=== PATIENT | male | born 1995 | race Caucasian/White ===

== ENCOUNTER 2017-07-13 22:58 | Emergency (ER) | payer BC ==
[~2017-07-13] VITALS: Ht 182.9 cm; Wt 78.7 kg
[2017-07-13 23:07] VITALS: TEMP 36.7; Ht 182.9 cm; Wt 78.7 kg
--- NOTE | 2017-07-13 23:52 | EMERGENCY ROOM VISIT NOTE ---
ED Visit Note First contact with patient: 23:38 CHIEF COMPLAINT: Left Knee laceration HISTORY OF PRESENT ILLNESS: This 21-year-old male presents the ER with chief complaint of a laceration to his left knee. The patient states at 2 AM this morning he fell striking his knee on the pavement. The patient states that he did not tear his hands that he had on when he fell. Therefore he felt the wound should be clean. The patient was intoxicated at the time. The patient states that it bled a lot and he cleaned it out with water. The patient states that he told his parents later today and they told him to come to the emergency room to get evaluated to see if it needed sutures. REVIEW OF SYSTEMS: 6 system review was performed and was negative unless stated otherwise in history of present illness. PMH: The patient is healthy; there is no significant medical or surgical history. SOCIAL HISTORY: Patient is a [employer]. The patient denies tobacco use but admits to occasional alcohol use. PHYSICAL EXAM: Vital Signs: Were reviewed Reviewed Nurse's notes. GEN.: 21-year -old white male appears in no acute distress. MENTAL Status: Alert and oriented 3. LEFT KNEE: No gross bony deformity noted. No erythema or edema noted. There is a superficial linear wound on the inferior aspect of the patella without any active bleeding. The edges do not gape with traction. There is no foreign material in the wound and it looks clean. No deep structures such as tendons or nerves are seen in the base of the wound. EMERGENCY DEPARTMENT COURSE: The patient was evaluated. I discussed with the patient that even though I do not feel that this would have required suture repair but in the future lacerations have to be repaired within the first 8 hours. Patient verbalized understanding. The wound was cleansed with Betadine and saline. Antibiotic ointment and a bandage was applied. The patient was discharged home in stable condition. DIAGNOSIS: Left knee abrasion DISCHARGE INSTRUCTIONS & TREATMENT: Antibiotic ointment and a bandage for 3 days. Watch the area carefully for signs of infection such as redness, swelling , or tenderness. If any should occur, follow-up with [facility] for antibiotic therapy. Vital Signs Date Time Temp Pulse Resp B/P (MAP) Pulse Ox O2 Delivery O2 Flow Rate FiO2 07/13/17 23:07 36.7 90 18 114/71 94 Room Air Departure Information Referrals No Doctor, Assigned (PCP) Patient Instructions [facility]
[2017-07-13 23:57] VITALS: BP 127/66; PULSE 87; O2SAT 97
== END 2017-07-13 23:57 | disposition home or self-care (01) ==
LOC: C.EDB 23:01 → C.EDC 23:57
DX: S81.012A Laceration without foreign body, left knee, initial encounter (principal); S80.212A Abrasion, left knee, initial encounter; W01.198A Fall on same level from slipping, tripping and stumbling with subsequent striking against other object, initial encounter